=== PATIENT | male | born 1985 | race Two or more races ===

== ENCOUNTER → 2018-05-29 | Outpatient (CLI) | payer BC ==
[2018-05-29 09:40] LABS: Basophils # (auto) 0 uL; Basophils % (auto) 0.4 % (0.0-2.0); Eosinophils # (auto) 0.1 uL; Eosinophils % (auto) 1.8 % (0.0-7.0); Hematocrit 46.4 % (41.0-53.0); Hemoglobin 15.7 g/dL (13.5-17.5); Lymphocytes # (auto) 1.3 uL; Lymphocytes % (auto) 23.3 % (10.0-50.0); Mean Corpuscular Hemoglobin 30.6 pg (28.0-32.0); Mean Corpuscular Hgb Conc. 33.8 g/dL (32.0-36.0); Mean Corpuscular Volume 90.8 fL (80.0-100.0); Monocytes # (auto) 0.5 uL; Monocytes % (auto) 8.8 % (0.0-12.0); Neutrophils # (auto) 3.8 uL; Neutrophils % (auto) 65.7 % (37.0-80.0); Platelet Count (auto) 220 10^3/uL (140-450); Red Blood Cells 5.11 10^6/uL (4.5-5.90); Red Cell Distribution Width 13.1 % (11.8-14.3); White Blood Cell 5.7 10^3/uL (4.4-10.8)
[2018-05-29 10:06] LABS: Albumin 4.4 g/dL (3.4-5.0); Calcium 9.1 mg/dL (8.5-10.1)
[2018-05-29 10:11] LABS: BUN/Creatinine Ratio 22.9; Bilirubin, Total 0.8 mg/dL (0.2-1.0); Total Protein 8.4 g/dL (6.4-8.2)
== END | disposition home or self-care (01) ==
LOC: LAB 09:16
PROVIDERS: ATTEND Internal Medicine
DX: E78.5 Hyperlipidemia, unspecified (principal)
CPT/HCPCS: 36415; 80053; 80061; 83036; 84443; 85025

== ENCOUNTER → 2018-11-18 | Outpatient (CLI) | payer BC ==
[2018-11-18 11:28] LABS: Urine Bacteria FEW /hpf (None Seen); Urine Blood Negative /uL (Negative); Urine Specific Gravity 1.025 (1.001-1.035); Urine WBC <1 /hpf (0 - 3)
[2018-11-18 11:31] LABS: Albumin 4.1 g/dL (3.4-5.0); Potassium 3.9 mmol/L (3.5-5.1)
[2018-11-18 11:41] LABS: Bilirubin, Total 0.7 mg/dL (0.2-1.0); Total Protein 7.8 g/dL (6.4-8.2)
== END | disposition home or self-care (01) ==
LOC: LAB 11:04
PROVIDERS: ATTEND Internal Medicine
DX: Z00.00 Encounter for general adult medical examination without abnormal findings (principal)
CPT/HCPCS: 36415; 80053; 80061; 81001; 83036; 84153

== ENCOUNTER → 2019-04-16 | Outpatient (CLI) | payer BC ==
[2019-04-16 09:32] LABS: Basophils # (auto) 0 uL; Basophils % (auto) 0.4 % (0.0-2.0); Eosinophils # (auto) 0.1 uL; Eosinophils % (auto) 1.9 % (0.0-7.0); Hematocrit 46.2 % (41.0-53.0); Hemoglobin 15.1 g/dL (13.5-17.5); Lymphocytes # (auto) 1.1 uL; Lymphocytes % (auto) 21.7 % (10.0-50.0); Mean Corpuscular Hemoglobin 29.9 pg (28.0-32.0); Mean Corpuscular Hgb Conc. 32.8 g/dL (32.0-36.0); Mean Corpuscular Volume 91.2 fL (80.0-100.0); Monocytes # (auto) 0.4 uL; Monocytes % (auto) 7.2 % (0.0-12.0); Neutrophils # (auto) 3.4 uL; Neutrophils % (auto) 68.8 % (37.0-80.0); Nucleated Red Blood Cells % 0.1 %; Platelet Count (auto) 234 10^3/uL (140-450); Red Blood Cells 5.06 10^6/uL (4.5-5.90); Red Cell Distribution Width 13.2 % (11.8-14.3)
[2019-04-16 09:52] LABS: Potassium 4.3 mmol/L (3.5-5.1)
[2019-04-16 10:07] LABS: Albumin 4.1 g/dL (3.4-5.0); BUN/Creatinine Ratio 19.3; Bilirubin, Total 0.7 mg/dL (0.2-1.0); Calcium 9.3 mg/dL (8.5-10.1); Total Protein 8.4 g/dL (6.4-8.2)
== END | disposition home or self-care (01) ==
LOC: LAB 09:08
PROVIDERS: ATTEND Internal Medicine
DX: Z03.89 Encounter for observation for other suspected diseases and conditions ruled out (principal); Z83.438 Family history of other disorder of lipoprotein metabolism and other lipidemia; E78.5 Hyperlipidemia, unspecified
CPT/HCPCS: 36415; 80053; 80061; 82306; 83036; 84403; 84439; 84443; 85025

== ENCOUNTER → 2019-09-01 | Outpatient (CLI) | payer BC ==
[2019-09-01 10:59] LABS: Basophils # (auto) 0 10 ^3/uL (0-0.2); Basophils % (auto) 0.3 % (0.0-2.0); Eosinophils # (auto) 0.1 10 ^3/uL (0-0.8); Eosinophils % (auto) 1.4 % (0.0-7.0); Hematocrit 43.9 % (41.0-53.0); Hemoglobin 14.8 g/dL (13.5-17.5); Lymphocytes # (auto) 1.3 10 ^3/uL (0.4-5.4); Lymphocytes % (auto) 27.7 % (10.0-50.0); Mean Corpuscular Hemoglobin 30.5 pg (28.0-32.0); Mean Corpuscular Hgb Conc. 33.6 g/dL (32.0-36.0); Mean Corpuscular Volume 90.6 fL (80.0-100.0); Monocytes # (auto) 0.4 10 ^3/uL (0-1.3); Monocytes % (auto) 8.8 % (0.0-12.0); Neutrophils # (auto) 2.9 10 ^3/uL (1.6-8.6); Neutrophils % (auto) 61.8 % (37.0-80.0); Nucleated Red Blood Cells % 0.1 %; Platelet Count (auto) 227 10^3/uL (140-450); Red Blood Cells 4.84 10^6/uL (4.5-5.90); Red Cell Distribution Width 12.5 % (11.8-14.3); White Blood Cell 4.7 10^3/uL (4.4-10.8)
[2019-09-01 11:18] LABS: Albumin 4.1 g/dL (3.4-5.0); Calcium 9.1 mg/dL (8.5-10.1); Potassium 4.2 mmol/L (3.5-5.1)
[2019-09-01 11:25] LABS: Total Protein 8.3 g/dL (6.4-8.2)
== END | disposition home or self-care (01) ==
LOC: LAB 10:46
PROVIDERS: ATTEND Internal Medicine
DX: E78.5 Hyperlipidemia, unspecified (principal)
CPT/HCPCS: 36415; 80053; 80061; 82306; 83036; 84403; 85025; 86677

== ENCOUNTER → 2019-12-30 | Outpatient (CLI) | payer BC | END | disposition home or self-care (01) | LOC: LAB 08:19 | PROVIDERS: ATTEND Internal Medicine | DX: Z20.828 Contact with and (suspected) exposure to other viral communicable diseases (principal) | CPT/HCPCS: 36415; 87426; C9803; U0003 ==

== ENCOUNTER → 2020-01-25 | Outpatient (CLI) | payer BC ==
[2020-01-25 08:55] LABS: Basophils # (auto) 0 10 ^3/uL (0-0.2); Basophils % (auto) 0.5 % (0.0-2.0); Eosinophils # (auto) 0.1 10 ^3/uL (0-0.8); Eosinophils % (auto) 1.8 % (0.0-7.0); Hematocrit 45.2 % (41.0-53.0); Hemoglobin 15.1 g/dL (13.5-17.5); Lymphocytes # (auto) 1.4 10 ^3/uL (0.4-5.4); Mean Corpuscular Hemoglobin 30.2 pg (28.0-32.0); Mean Corpuscular Hgb Conc. 33.4 g/dL (32.0-36.0); Mean Corpuscular Volume 90.4 fL (80.0-100.0); Monocytes # (auto) 0.5 10 ^3/uL (0-1.3); Monocytes % (auto) 10.2 % (0.0-12.0); Neutrophils % (auto) 59.5 % (37.0-80.0); Platelet Count (auto) 242 10^3/uL (140-450); Red Cell Distribution Width 12.8 % (11.8-14.3); White Blood Cell 5.1 10^3/uL (4.4-10.8)
[2020-01-25 09:53] LABS: Albumin 4.2 g/dL (3.4-5.0); Potassium 4.1 mmol/L (3.5-5.1)
[2020-01-25 09:57] LABS: BUN/Creatinine Ratio 21.7; Bilirubin, Total 0.9 mg/dL (0.2-1.0); Total Protein 7.9 g/dL (6.4-8.2)
== END | disposition home or self-care (01) ==
LOC: LAB 08:36
PROVIDERS: ATTEND Internal Medicine
DX: E55.9 Vitamin D deficiency, unspecified (principal)
CPT/HCPCS: 36415; 80053; 82306; 83036; 84443; 85025

== ENCOUNTER → 2020-04-10 | Outpatient (CLI) | payer BC ==
[2020-04-10 07:25] LABS: Anion Gap 4 (5-15); Carbon Dioxide 30 mmol/L (21-32); Chloride 106 mmol/L (98-107); Potassium 4.4 mmol/L (3.5-5.1); Sodium 140 mmol/L (136-145)
[2020-04-10 07:26] LABS: Alanine Aminotransferase 61 U/L (16-61); Albumin 4.3 g/dL (3.4-5.0); Alkaline Phosphatase 84 U/L (45-117); Aspartate Aminotransferase 29 U/L (15-37); BUN/Creatinine Ratio 20.7; Bilirubin, Total 0.4 mg/dL (0.2-1.0); Blood Urea Nitrogen 23 mg/dL (7-18); Calcium 9.2 mg/dL (8.5-10.1); Cholesterol 225 mg/dL (< 200); GFR African American 99 mL/min; GFR Non-African American 82 mL/min; Glucose 92 mg/dL (74-106); Total Protein 8.5 g/dL (6.4-8.2); Triglycerides 92 mg/dL (< 150)
[2020-04-10 07:27] LABS: HDL Cholesterol 67 mg/dL (40-59); LDL Cholesterol 139 mg/dL (< 100)
[2020-04-10 07:28] LABS: Urine Blood Negative /uL (Negative); Urine Specific Gravity 1.027 (1.001-1.035)
[2020-04-10 07:29] LABS: Urine Bacteria FEW /hpf (None Seen)
[2020-04-10 07:44] LABS: Lymphocytes % (auto) 28.7 % (10.0-50.0); Neutrophils % (auto) 58.2 % (37.0-80.0); White Blood Cell 5.6 10^3/uL (4.4-10.8)
[2020-04-10 07:45] LABS: Basophils # (auto) 0 10 ^3/uL (0-0.2); Basophils % (auto) 0.6 % (0.0-2.0); Eosinophils # (auto) 0.1 10 ^3/uL (0-0.8); Eosinophils % (auto) 2.1 % (0.0-7.0); Hematocrit 44.1 % (41.0-53.0); Hemoglobin 14.9 g/dL (13.5-17.5); Lymphocytes # (auto) 1.6 10 ^3/uL (0.4-5.4); Mean Corpuscular Hemoglobin 30.7 pg (28.0-32.0); Monocytes # (auto) 0.6 10 ^3/uL (0-1.3); Monocytes % (auto) 10.4 % (0.0-12.0); Neutrophils # (auto) 3.3 10 ^3/uL (1.6-8.6); Nucleated Red Blood Cells % 0.2 %; Red Blood Cells 4.85 10^6/uL (4.5-5.90)
[2020-04-10 07:46] LABS: Mean Corpuscular Hgb Conc. 33.7 g/dL (32.0-36.0); Platelet Count (auto) 239 10^3/uL (140-450); Red Cell Distribution Width 12.7 % (11.8-14.3)
== END | disposition home or self-care (01) ==
LOC: LAB 07:01
PROVIDERS: ATTEND Internal Medicine
DX: E78.5 Hyperlipidemia, unspecified (principal); E55.9 Vitamin D deficiency, unspecified
CPT/HCPCS: 36415; 80053; 80061; 81001; 82306; 83036; 83540; 83550; 84439; 84443; 85025

== ENCOUNTER → 2020-09-01 | Outpatient (CLI) | payer BC ==
[2020-09-01 08:47] LABS: Basophils # (auto) 0 10 ^3/uL (0-0.2); Eosinophils # (auto) 0.1 10 ^3/uL (0-0.8); Eosinophils % (auto) 2.1 % (0.0-7.0); Hematocrit 40.3 % (41.0-53.0); Hemoglobin 14.1 g/dL (13.5-17.5); Lymphocytes # (auto) 1.1 10 ^3/uL (0.4-5.4); Lymphocytes % (auto) 22.9 % (10.0-50.0); Mean Corpuscular Hemoglobin 31.2 pg (28.0-32.0); Mean Corpuscular Hgb Conc. 34.9 g/dL (32.0-36.0); Mean Corpuscular Volume 89.4 fL (80.0-100.0); Monocytes # (auto) 0.5 10 ^3/uL (0-1.3); Monocytes % (auto) 10.7 % (0.0-12.0); Neutrophils % (auto) 63.3 % (37.0-80.0); Platelet Count (auto) 234 10^3/uL (140-450); Red Blood Cells 4.51 10^6/uL (4.5-5.90); Red Cell Distribution Width 12.6 % (11.8-14.3); White Blood Cell 4.8 10^3/uL (4.4-10.8)
[2020-09-01 09:18] LABS: Albumin 4.1 g/dL (3.4-5.0); Calcium 8.7 mg/dL (8.5-10.1)
[2020-09-01 09:24] LABS: BUN/Creatinine Ratio 18.4; Bilirubin, Total 0.8 mg/dL (0.2-1.0); Total Protein 7.9 g/dL (6.4-8.2)
== END | disposition home or self-care (01) ==
LOC: LAB 08:37
PROVIDERS: ATTEND Internal Medicine
DX: E78.5 Hyperlipidemia, unspecified (principal)
CPT/HCPCS: 36415; 80053; 80061; 82306; 83036; 84403; 85025; 85049

== ENCOUNTER → 2021-01-25 | Outpatient (CLI) | payer BC ==
[2021-01-25 13:18] LABS: Basophils # (auto) 0 10 ^3/uL (0-0.2); Basophils % (auto) 0.5 % (0.0-2.0); Eosinophils # (auto) 0.1 10 ^3/uL (0-0.8); Eosinophils % (auto) 1.8 % (0.0-7.0); Hematocrit 44.7 % (41.0-53.0); Hemoglobin 15.2 g/dL (13.5-17.5); Lymphocytes # (auto) 1.8 10 ^3/uL (0.4-5.4); Lymphocytes % (auto) 30.9 % (10.0-50.0); Mean Corpuscular Hemoglobin 30.7 pg (28.0-32.0); Mean Corpuscular Hgb Conc. 33.9 g/dL (32.0-36.0); Mean Corpuscular Volume 90.4 fL (80.0-100.0); Monocytes # (auto) 0.5 10 ^3/uL (0-1.3); Monocytes % (auto) 8.6 % (0.0-12.0); Neutrophils # (auto) 3.5 10 ^3/uL (1.6-8.6); Neutrophils % (auto) 58.2 % (37.0-80.0); Nucleated Red Blood Cells % 0.1 %; Red Blood Cells 4.94 10^6/uL (4.5-5.90)
[2021-01-25 15:42] LABS: Albumin 4.3 g/dL (3.4-5.0); BUN/Creatinine Ratio 16.3
[2021-01-25 15:45] LABS: Bilirubin, Total 0.8 mg/dL (0.2-1.0); Total Protein 8.2 g/dL (6.4-8.2)
== END | disposition home or self-care (01) ==
LOC: LAB 12:11
PROVIDERS: ATTEND Internal Medicine
DX: Z00.00 Encounter for general adult medical examination without abnormal findings (principal)
CPT/HCPCS: 36415; 80053; 82306; 83036; 85025; 86677; 86706; 86735; 86762; 86765; 86787

== ENCOUNTER → 2021-03-07 | Outpatient (CLI) | payer BC ==
[2021-03-07 08:16] LABS: Basophils # (auto) 0 10 ^3/uL (0-0.2); Basophils % (auto) 0.5 % (0.0-2.0); Eosinophils # (auto) 0.1 10 ^3/uL (0-0.8); Eosinophils % (auto) 2.5 % (0.0-7.0); Hematocrit 43.4 % (41.0-53.0); Hemoglobin 14.6 g/dL (13.5-17.5); Lymphocytes # (auto) 1.4 10 ^3/uL (0.4-5.4); Lymphocytes % (auto) 29.9 % (10.0-50.0); Mean Corpuscular Hemoglobin 30.3 pg (28.0-32.0); Mean Corpuscular Hgb Conc. 33.7 g/dL (32.0-36.0); Monocytes # (auto) 0.5 10 ^3/uL (0-1.3); Monocytes % (auto) 9.8 % (0.0-12.0); Neutrophils # (auto) 2.7 10 ^3/uL (1.6-8.6); Neutrophils % (auto) 57.3 % (37.0-80.0); Nucleated Red Blood Cells % 0.1 %; Red Blood Cells 4.82 10^6/uL (4.5-5.90); Red Cell Distribution Width 12.7 % (11.8-14.3); White Blood Cell 4.7 10^3/uL (4.4-10.8)
[2021-03-07 09:44] LABS: Potassium 4.4 mmol/L (3.5-5.1)
[2021-03-07 09:53] LABS: BUN/Creatinine Ratio 21.1
[2021-03-07 09:55] LABS: Bilirubin, Total 0.5 mg/dL (0.2-1.0); Total Protein 7.6 g/dL (6.4-8.2)
== END | disposition home or self-care (01) ==
LOC: LAB 08:01
PROVIDERS: ATTEND Internal Medicine
DX: Z00.01 Encounter for general adult medical examination with abnormal findings (principal)
CPT/HCPCS: 36415; 80053; 80061; 85025

== ENCOUNTER → 2021-04-25 | Outpatient (CLI) | payer BC | END | disposition home or self-care (01) | LOC: LAB 08:59 | PROVIDERS: ATTEND Internal Medicine | DX: Z20.822 Contact with and (suspected) exposure to COVID-19 (principal) | CPT/HCPCS: C9803; U0003 ==

== ENCOUNTER → 2021-07-18 | Outpatient (CLI) | payer BC ==
[2021-07-18 10:53] LABS: Basophils # (auto) 0 10 ^3/uL (0-0.2); Basophils % (auto) 0.6 % (0.0-2.0); Eosinophils # (auto) 0.1 10 ^3/uL (0-0.8); Eosinophils % (auto) 2.2 % (0.0-7.0); Hematocrit 43.1 % (41.0-53.0); Hemoglobin 14.6 g/dL (13.5-17.5); Lymphocytes # (auto) 1.3 10 ^3/uL (0.4-5.4); Lymphocytes % (auto) 30.5 % (10.0-50.0); Mean Corpuscular Hemoglobin 30.4 pg (28.0-32.0); Mean Corpuscular Hgb Conc. 33.9 g/dL (32.0-36.0); Mean Corpuscular Volume 89.6 fL (80.0-100.0); Monocytes # (auto) 0.4 10 ^3/uL (0-1.3); Monocytes % (auto) 8.4 % (0.0-12.0); Neutrophils # (auto) 2.5 10 ^3/uL (1.6-8.6); Neutrophils % (auto) 58.3 % (37.0-80.0); Nucleated Red Blood Cells % 0.2 %; Red Blood Cells 4.81 10^6/uL (4.5-5.90); Red Cell Distribution Width 12.6 % (11.8-14.3); White Blood Cell 4.2 10^3/uL (4.4-10.8)
[2021-07-18 11:32] LABS: Albumin 3.9 g/dL (3.4-5.0); Potassium 4.2 mmol/L (3.5-5.1)
[2021-07-18 11:39] LABS: BUN/Creatinine Ratio 18.1; Calcium 9.2 mg/dL (8.5-10.1); Total Protein 8.2 g/dL (6.4-8.2)
== END | disposition home or self-care (01) ==
LOC: LAB 10:08
PROVIDERS: ATTEND Internal Medicine
DX: Z00.00 Encounter for general adult medical examination without abnormal findings (principal)
CPT/HCPCS: 80053; 80061; 82306; 83036; 84153

== ENCOUNTER → 2021-08-28 | Outpatient (CLI) | payer BC | END | disposition home or self-care (01) | LOC: XYW 15:28 | PROVIDERS: ATTEND Internal Medicine | DX: M47.812 Spondylosis without myelopathy or radiculopathy, cervical region (principal); M51.37 Other intervertebral disc degeneration, lumbosacral region | CPT/HCPCS: 72052; 72100 ==

== ENCOUNTER → 2021-11-12 | Outpatient (CLI) | payer BC ==
[2021-11-12 13:34] LABS: Band Neutrophils % (manual) 0; Basophils % (manual) 0 (0.0-2.0); Blast Cells 0; Eosinophils % (manual) 0 (0-7); Hematocrit 42.2 % (41.0-53.0); Hemoglobin 13.9 g/dL (13.5-17.5); Mean Corpuscular Hemoglobin 29.6 pg (28.0-32.0); Mean Corpuscular Hgb Conc. 32.9 g/dL (32.0-36.0); Mean Corpuscular Volume 89.8 fL (80.0-100.0); Metamyelocytes % 0; Myelocytes % 0; Promyelocytes % 0; Reactive Lymphocytes 0; Red Cell Distribution Width 12.4 % (11.8-14.3); White Blood Cell 4.9 10^3/uL (4.4-10.8)
[2021-11-12 14:06] LABS: Calcium 8.9 mg/dL (8.5-10.1); Potassium 4.3 mmol/L (3.5-5.1)
[2021-11-12 14:12] LABS: BUN/Creatinine Ratio 29.6; Bilirubin, Total 0.5 mg/dL (0.2-1.0); Total Protein 7.7 g/dL (6.4-8.2)
[2021-11-12 14:47] LABS: Lymphocytes % (manual) 32 (10.0-50.0); Monocytes % (manual) 9 (0-12)
[2021-11-12 15:29] LABS: Urine Bacteria NONE SEEN /hpf (None Seen); Urine Blood Negative /uL (Negative); Urine Specific Gravity 1.025 (1.001-1.035); Urine WBC 1 /hpf (0 - 3)
== END | disposition home or self-care (01) ==
LOC: LAB 13:19
PROVIDERS: ATTEND Internal Medicine
DX: E78.00 Pure hypercholesterolemia, unspecified (principal)
CPT/HCPCS: 36415; 80053; 80061; 81001; 82306; 83036; 84153; 84403; 85007; 85027; 87086; 87088

== ENCOUNTER → 2021-12-06 | Outpatient (CLI) | payer BC ==
[2021-12-06 10:20] LABS: Urine Bacteria NONE SEEN /hpf (None Seen); Urine Blood Negative /uL (Negative); Urine Specific Gravity 1.012 (1.001-1.035); Urine WBC <1 /hpf (0 - 3)
== END | disposition home or self-care (01) ==
LOC: LAB 10:02
PROVIDERS: ATTEND Internal Medicine
DX: Z00.00 Encounter for general adult medical examination without abnormal findings (principal)
CPT/HCPCS: 81001; 87086

== ENCOUNTER → 2022-01-21 | Outpatient (CLI) | payer BC | END | disposition home or self-care (01) | LOC: EEVIPCON → XYW 15:48 | PROVIDERS: ATTEND Internal Medicine | DX: R07.9 Chest pain, unspecified (principal) | CPT/HCPCS: 93306 ==

== ENCOUNTER → 2022-07-18 | Outpatient (CLI) | payer BC ==
[2022-07-18 10:01] LABS: Band Neutrophils % (manual) 0; Basophils % (manual) 0 (0.0-2.0); Blast Cells 0; Metamyelocytes % 0; Myelocytes % 0; Promyelocytes % 0; Reactive Lymphocytes 0
[2022-07-18 10:06] LABS: Hematocrit 43.4 % (41.0-53.0); Hemoglobin 14.7 g/dL (13.5-17.5); Mean Corpuscular Hemoglobin 30.6 pg (28.0-32.0); Red Blood Cells 4.82 10^6/uL (4.5-5.90); Red Cell Distribution Width 12.6 % (11.8-14.3); White Blood Cell 4.5 10^3/uL (4.4-10.8)
[2022-07-18 10:33] LABS: Eosinophils % (manual) 1 (0-7); Lymphocytes % (manual) 22 (10.0-50.0); Monocytes % (manual) 6 (0-12)
[2022-07-18 10:38] LABS: Carcinoembryonic Antigen 1.56 ng/mL (<5.0 OR =); Free T4 (Free Thyroxine) 1.09 ng/dL (0.89-1.76); Prostate Specific Antigen 0.82 ng/mL (0.0-4.0)
[2022-07-18 10:41] LABS: Albumin 4.2 g/dL (3.4-5.0); BUN/Creatinine Ratio 23.2 (10.0-20.0); Bilirubin, Total 0.4 mg/dL (0.2-1.0); CRP High Sensitivity 0.23 mg/dL (< 0.3); Calcium 8.8 mg/dL (8.5-10.1)
[2022-07-18 11:04] LABS: Thyroid Stimulating Hormone 0.93 uIU/mL (0.358-3.74)
[2022-07-18 12:29] LABS: INR 0.92 (0.9-1.15); Partial Thromboplastin Time 31.2 sec (24.6-33.4)
[2022-07-18 14:09] LABS: Creatinine, Urine 28 mg/dL (30.0-125.0); Protein, Urine < 5 mg/dL (0.0-11.9)
[2022-07-18 14:14] LABS: Urine Bacteria NONE SEEN /hpf (None Seen); Urine Blood Negative /uL (Negative); Urine Specific Gravity 1.029 (1.001-1.035)
[2022-07-18 14:19] LABS: Micro Albumin < 5.00 mg/L (0-30.0)
== END | disposition home or self-care (01) ==
LOC: LAB 09:42
PROVIDERS: ATTEND Internal Medicine
DX: Z00.00 Encounter for general adult medical examination without abnormal findings (principal)
CPT/HCPCS: 36415; 80053; 80061; 81001; 82043; 82306; 82378; 82570; 82607; 83036; 83520; 83615; 84153; 84156; 84403; 84439; 84443; 85007; 85027; 85610; 85730; 86141; 86256; 86301; 86677; 87086

== ENCOUNTER → 2022-07-19 | Outpatient (CLI) | payer BC | END | disposition home or self-care (01) | LOC: LAB 08:31 | PROVIDERS: ATTEND Internal Medicine | DX: Z00.00 Encounter for general adult medical examination without abnormal findings (principal) | CPT/HCPCS: 82274; 85048; 87045; 87177; 87427; 87493 ==

== ENCOUNTER 2022-10-30 08:27 | Day surgery (SDC) | payer BC ==
[~2022-10-30] VITALS: Ht 182.9 cm; Wt 81.2 kg
[2022-10-30 08:31] VITALS: TEMP 97.2
[2022-10-30] MEDS ORDERED: LIDOCAINE VISCOUS 2% 15ML UD ONE (08:35)
[2022-10-30 09:07] LABS: Basophils # (auto) 0 10 ^3/uL (0-0.2); Basophils % (auto) 0.6 % (0.0-2.0); Eosinophils # (auto) 0.1 10 ^3/uL (0-0.8); Eosinophils % (auto) 1.3 % (0.0-7.0); Hematocrit 44.7 % (41.0-53.0); Hemoglobin 15.1 g/dL (13.5-17.5); Lymphocytes # (auto) 1.3 10 ^3/uL (0.4-5.4); Lymphocytes % (auto) 26.3 % (10.0-50.0); Mean Corpuscular Hemoglobin 30.4 pg (28.0-32.0); Mean Corpuscular Hgb Conc. 33.8 g/dL (32.0-36.0); Mean Corpuscular Volume 89.8 fL (80.0-100.0); Monocytes # (auto) 0.5 10 ^3/uL (0-1.3); Neutrophils # (auto) 3.1 10 ^3/uL (1.6-8.6); Neutrophils % (auto) 61.8 % (37.0-80.0); Nucleated Red Blood Cells % 0.1 %; Red Blood Cells 4.98 10^6/uL (4.5-5.90); Red Cell Distribution Width 12.8 % (11.8-14.3); White Blood Cell 4.9 10^3/uL (4.4-10.8)
[2022-10-30 09:19] LABS: INR 1.02 (0.9-1.15); Partial Thromboplastin Time 31.6 SEC (24.5-34.5); Prothrombin Time 10.7 sec (9.3-11.8)
[2022-10-30 09:30] LABS: Alanine Aminotransferase 35 U/L (7-40); Albumin 4.8 g/dL (3.2-4.8); Alkaline Phosphatase 63 U/L (46-116); Anion Gap 7.9 (5-15); Aspartate Aminotransferase 25 U/L (13-40); Bilirubin, Total 1.2 mg/dL (0.2-1.0); Blood Urea Nitrogen 12 mg/dL (9-23); Carbon Dioxide 26.1 mmol/L (20-30); Chloride 104 mmol/L (98-107); Cholesterol 229 mg/dL (< 200); Glucose 96 mg/dL (74-106); HDL Cholesterol 58 mg/dL (40-59); LDL Cholesterol 148 mg/dL (< 100); Potassium 4.1 mmol/L (3.5-5.1); Sodium 138 mmol/L (136-145); Triglycerides 115 mg/dL (< 150)
[2022-10-30 09:34] LABS: Calcium 9.4 mg/dL (8.5-10.1)
[2022-10-30 09:51] VITALS: PULSE 95; RESP 18; O2SAT 100
[2022-10-30 11:06] VITALS: BP 104/70; PULSE 80; RESP 16; O2SAT 98
[2022-11-06 12:07] LABS: Free Testosterone(Direct) 5.8 pg/mL (8.7-25.1)
== END 2022-10-30 11:18 | disposition home or self-care (01) ==
LOC: GI 08:27
PROVIDERS: ATTEND Internal Medicine Gastroenterology
DX: K62.5 Hemorrhage of anus and rectum (principal); K64.1 Second degree hemorrhoids; K64.4 Residual hemorrhoidal skin tags; K62.1 Rectal polyp; K63.5 Polyp of colon; K25.9 Gastric ulcer, unspecified as acute or chronic, without hemorrhage or perforation; K29.50 Unspecified chronic gastritis without bleeding; K31.7 Polyp of stomach and duodenum
CPT/HCPCS: 36415; 43239; 45380; 45385; 80053; 80061; 82306; 83036; 84402; 84403; 85025; 85610; 85730; 88305; 88342; J7030

== ENCOUNTER → 2022-12-26 | Outpatient (CLI) | payer BC ==
[2022-12-26 08:44] LABS: Basophils # (auto) 0 10 ^3/uL (0-0.2); Basophils % (auto) 0.5 % (0.0-2.0); Eosinophils # (auto) 0.1 10 ^3/uL (0-0.8); Eosinophils % (auto) 1.5 % (0.0-7.0); Hematocrit 44.2 % (41.0-53.0); Hemoglobin 14.5 g/dL (13.5-17.5); Lymphocytes # (auto) 1.3 10 ^3/uL (0.4-5.4); Lymphocytes % (auto) 27.4 % (10.0-50.0); Mean Corpuscular Hemoglobin 29.7 pg (28.0-32.0); Mean Corpuscular Hgb Conc. 32.9 g/dL (32.0-36.0); Mean Corpuscular Volume 90.4 fL (80.0-100.0); Monocytes # (auto) 0.4 10 ^3/uL (0-1.3); Monocytes % (auto) 8.9 % (0.0-12.0); Neutrophils # (auto) 2.9 10 ^3/uL (1.6-8.6); Neutrophils % (auto) 61.7 % (37.0-80.0); Red Blood Cells 4.89 10^6/uL (4.5-5.90); Red Cell Distribution Width 13.1 % (11.8-14.3); White Blood Cell 4.7 10^3/uL (4.4-10.8)
[2022-12-26 09:29] LABS: Alanine Aminotransferase 26 U/L (7-40); Alkaline Phosphatase 72 U/L (46-116); Anion Gap 8 (5-15); BUN/Creatinine Ratio 13.8 (10.0-20.0); Blood Urea Nitrogen 13 mg/dL (9-23); Calcium 9.8 mg/dL (8.5-10.1); Carbon Dioxide 29 mmol/L (20-30); Chloride 103 mmol/L (98-107); Glucose 93 mg/dL (74-106); LDL Cholesterol 124 mg/dL (< 100); Potassium 4.2 mmol/L (3.5-5.1); Sodium 140 mmol/L (136-145); Thyroid Stimulating Hormone 1.25 uIU/mL (0.358-3.74); Triglycerides 72 mg/dL (< 150)
[2022-12-26 09:30] LABS: Aspartate Aminotransferase 18 U/L (13-40); Bilirubin, Total 0.9 mg/dL (0.2-1.0); Cholesterol 214 mg/dL (< 200); HDL Cholesterol 64 mg/dL (40-59)
== END | disposition home or self-care (01) ==
LOC: LAB 08:37
PROVIDERS: ATTEND Internal Medicine
DX: E55.9 Vitamin D deficiency, unspecified (principal)
CPT/HCPCS: 36415; 80053; 80061; 82306; 83036; 83615; 84403; 84443; 85025

== ENCOUNTER → 2023-04-14 | Outpatient (CLI) | payer BC ==
[2023-04-14 15:56] LABS: Basophils # (auto) 0 10 ^3/uL (0-0.2); Basophils % (auto) 0.4 % (0.0-2.0); Eosinophils # (auto) 0.1 10 ^3/uL (0-0.8); Eosinophils % (auto) 0.9 % (0.0-7.0); Hemoglobin 14.9 g/dL (13.5-17.5); Lymphocytes # (auto) 1.5 10 ^3/uL (0.4-5.4); Lymphocytes % (auto) 21.2 % (10.0-50.0); Mean Corpuscular Hemoglobin 29.8 pg (28.0-32.0); Mean Corpuscular Volume 90.2 fL (80.0-100.0); Monocytes # (auto) 0.5 10 ^3/uL (0-1.3); Monocytes % (auto) 6.6 % (0.0-12.0); Neutrophils % (auto) 70.9 % (37.0-80.0); Nucleated Red Blood Cells % 0.2 %; Red Blood Cells 4.99 10^6/uL (4.5-5.90); Red Cell Distribution Width 12.8 % (11.8-14.3); White Blood Cell 7.1 10^3/uL (4.4-10.8)
[2023-04-14 16:27] LABS: Erythrocyte Sedimentation Rate 12 mm/hr (0-20)
[2023-04-14 16:34] LABS: Alanine Aminotransferase 33 U/L (7-40); Albumin 4.9 g/dL (3.2-4.8); Alkaline Phosphatase 74 U/L (46-116); Anion Gap 6 (5-15); Aspartate Aminotransferase 17 U/L (13-40); BUN/Creatinine Ratio 12.1 (10.0-20.0); Blood Urea Nitrogen 12 mg/dL (9-23); CRP High Sensitivity 0.14 mg/dL (<1.0); Calcium 9.8 mg/dL (8.5-10.1); Carbon Dioxide 31 mmol/L (20-30); Chloride 103 mmol/L (98-107); Glucose 89 mg/dL (74-106); Potassium 3.5 mmol/L (3.5-5.1); Sodium 140 mmol/L (136-145)
[2023-04-14 16:35] LABS: Bilirubin, Total 0.7 mg/dL (0.2-1.0); Total Protein 7.8 g/dL (5.7-8.2)
[2023-04-14 16:44] LABS: Thyroid Stimulating Hormone 0.8 uIU/mL (0.358-3.74)
[2023-04-15 08:06] LABS: AFP Serum Tumor Marker <1.8 ng/mL (0.0-6.9); Carbohydrate Antigen 19-9 23 U/mL (0-35)
== END | disposition home or self-care (01) ==
LOC: LAB 15:44
PROVIDERS: ATTEND Internal Medicine
DX: E55.9 Vitamin D deficiency, unspecified (principal)
CPT/HCPCS: 36415; 80053; 82105; 82306; 83036; 83615; 84153; 84443; 85025; 85652; 86141; 86301

== ENCOUNTER 2023-05-26 09:26 | Emergency (ER) | payer BC ==
[~2023-05-26] VITALS: Ht 188 cm; Wt 81.6 kg
[2023-05-26] MEDS ORDERED: cefTRIAXone 2GM/50ML D5W 50 ML IV ONE (14:45)
[2023-05-26] MEDS ORDERED: FOLIC ACID 1 MG, MAGNESIUM SULF SDV 50% 8 MEQ, MULTIPLE VITAMIN 10 ML, THIAMINE INJ 100... INJ ONE (15:00)
[2023-05-27] MEDS ORDERED: cefTRIAXone 2GM/50ML D5W 50 ML IV SCH (11:00)
[2023-05-27] MEDS ORDERED: FOLIC ACID 1 MG, MAGNESIUM SULF SDV 50% 8 MEQ, MULTIPLE VITAMIN 10 ML, THIAMINE INJ 100... INJ SCH (17:00)
== END 2023-05-27 00:30 | disposition home or self-care (01) ==
LOC: EEVIPCON 09:26 → ER 09:26
DX: E86.0 Dehydration (principal)
CPT/HCPCS: J0696; J3411; J3475; J7030

== ENCOUNTER → 2023-07-29 | Outpatient (CLI) | payer BC ==
[2023-07-29 10:41] LABS: Basophils # (auto) 0 10 ^3/uL (0-0.2); Basophils % (auto) 0.6 % (0.0-2.0); Eosinophils # (auto) 0.1 10 ^3/uL (0-0.8); Eosinophils % (auto) 1.2 % (0.0-7.0); Hematocrit 45.8 % (41.0-53.0); Hemoglobin 15.1 g/dL (13.5-17.5); Lymphocytes # (auto) 1.1 10 ^3/uL (0.4-5.4); Lymphocytes % (auto) 23.2 % (10.0-50.0); Mean Corpuscular Hemoglobin 29.8 pg (28.0-32.0); Mean Corpuscular Volume 90.5 fL (80.0-100.0); Monocytes # (auto) 0.4 10 ^3/uL (0-1.3); Monocytes % (auto) 8.7 % (0.0-12.0); Neutrophils # (auto) 3.2 10 ^3/uL (1.6-8.6); Neutrophils % (auto) 66.3 % (37.0-80.0); Nucleated Red Blood Cells % 0.1 %; Red Blood Cells 5.06 10^6/uL (4.5-5.90); Red Cell Distribution Width 13.2 % (11.8-14.3); White Blood Cell 4.8 10^3/uL (4.4-10.8)
[2023-07-29 10:56] LABS: Urine Bacteria None Seen /hpf (None Seen); Urine Blood Negative /uL (Negative); Urine Clarity Clear (Clear); Urine Color Light-Yellow (Yellow); Urine Protein, UAD Negative (Negative); Urine Specific Gravity 1.026 (1.001-1.035); Urine Sperm PRESENT /hpf (None Seen); Urine Urobilinogen Normal (Negative); Urine WBC <1 /hpf (0 - 3); Urine pH 7.5 (5.0-9.0)
[2023-07-29 11:18] LABS: Alanine Aminotransferase 33 U/L (7-40); Albumin 4.6 g/dL (3.2-4.8); Alkaline Phosphatase 68 U/L (46-116); Anion Gap 7 (5-15); Aspartate Aminotransferase 19 U/L (13-40); BUN/Creatinine Ratio 20.3 (10.0-20.0); Blood Urea Nitrogen 16 mg/dL (9-23); Calcium 9.6 mg/dL (8.5-10.1); Carbon Dioxide 26 mmol/L (20-30); Chloride 104 mmol/L (98-107); Cholesterol 226 mg/dL (< 200); Glucose 98 mg/dL (74-106); HDL Cholesterol 59 mg/dL (40-59); LDL Cholesterol 150 mg/dL (< 100); Potassium 4.3 mmol/L (3.5-5.1); Sodium 137 mmol/L (136-145); Triglycerides 86 mg/dL (< 150)
[2023-07-29 11:19] LABS: Bilirubin, Total 0.7 mg/dL (0.2-1.0); Total Protein 7.6 g/dL (5.7-8.2)
[2023-07-29 11:21] LABS: Thyroid Stimulating Hormone 0.78 uIU/mL (0.55-4.78)
== END | disposition home or self-care (01) ==
LOC: LAB 10:22
PROVIDERS: ATTEND Internal Medicine
DX: Z12.5 Encounter for screening for malignant neoplasm of prostate (principal); E03.9 Hypothyroidism, unspecified; E55.9 Vitamin D deficiency, unspecified
CPT/HCPCS: 36415; 80053; 80061; 81001; 82306; 83036; 83615; 84153; 84403; 84443; 85025

== ENCOUNTER → 2024-01-02 | Day surgery (SDC) | payer BC ==
[~2024-01-02] VITALS: Ht 182.9 cm; Wt 84.1 kg
[~2024-01-02] MED LIST: ANGIOMAX 250 MG VIAL IV ONE; HEPARIN SODIUM (PORCINE) 5000 UNITS/ML 1ML VIAL ONE; IODIXANOL 320MG/ML 100ML BTL IV ONE; LIDOCAINE 2%HCL (LOCAL ANESTH.) INJ 20ML MDV ONE; MIDAZOLAM HCL 2MG/2ML 2ml VIAL (1mg/ml) ONE; PROM2SYP2 PO; SODIUM CHL 0.9% 0 ML ONE; VERAPAMIL 2.5MG/ML INJ 2ML VIAL IV ONE; fentaNYL CITRATE 100 MCG/2 ML VL ONE
--- NOTE | 2024-01-03 00:02 | ED.PDOC ---
HPI Comments 38M previously healthy presents with 4+ hours of sharp left sided chest pain that radiates to his left arm that began at rest. Patient called project management instructor who took patient to [facility] and had dynamic ekg changes. Patient then was escorted here for expert cardiology consultation. Chief Complaint: Chest Pain Time Seen by MD: 00:02 Allergies: Coded Allergies: NO KNOWN ALLERGIES (Unverified , 10/30/22) Home Meds Reported Medications Promethazine W/Codeine (Promethazine/Codeine) 1 Syp Syp, 5 ML PO TID PRN for 7 Days, #240 ML 10/07/23 Promethazine W/Codeine (Promethazine/Codeine) 1 Syp Syp, 5 ML PO TID PRN for 7 Days, #240 ML 10/07/23 Information Source: Patient Mode of Arrival: Ambulatory Past Medical History PAST MEDICAL HISTORY: Denies Surgical History: Denies all surgeries Constitutional: denies: chills, diaphoresis, fatigue, fever, malaise, sweats, weakness, others EENTM: denies: blurred vision, double vision, ear bleeding, ear discharge, ear drainage, ear pain, ear ringing, eye pain, eye redness, hearing loss, mouth pain, mouth swelling, nasal discharge, nose bleeding, nose congestion, nose p ain, photophobia, tearing, throat pain, throat swelling, voice changes, others Respiratory: denies: cough, hemoptysis, orthopnea, SOB at rest, shortness of breath, SOB with excertion, stridor, wheezing, others Cardiovascular: reports: chest pain; denies: dizzy spells, diaphoresis, Dyspnea on exertion, edema, irregular heart beat, left arm pain, lightheadedness, palpitations, PND, syncope, others Gastrointestinal: denies: abdomen distended, abdominal pain, blood streaked bowels, constipated, diarrhea, dysphagia, difficulty swallowing, hematemesis, melena, nausea, poor appetite, poor fluid intake, rectal bleeding, rectal pain, vomiting, others Genitourinary: denies: burning, dysuria, flank pain, frequency, hematuria, incontinence, penile discharge, penile sore, pain, testicle pain, testicle swelling, urgency, others Neurological: denies: dizziness, fainting, headache, left sided numbness, left sided weakness, numbness, paresthesia, pre-existing deficit, right sided numbness, right sided weakness, seizure, speech problems, tingling, tremors, weakness, others Musculoskeletal: denies: back pain, gout, joint pain, joint swelling, muscle pain, muscle stiffness, neck pain, others Integumetry: denies: bruises, change in color, change in hair/nails, dryness, laceration, lesions, lumps, rash, wounds, others Allergic/Immunocompromised: denies: Difficulty Healing, Frequent Infections, Hives, Itching, others Hematologic/Lymphatic: denies: anemia, blood clots, easy bleeding, easy bruising, swollen glands, others Endocrine: denies: excessive hunger, excessive sweating, excessive thirst, excessive urination, flushing, intolerance to cold, intolerance to heat, unexplained weight gain, unexplained weight loss, others Psychiatric: denies: anxiety, bipolar disorder, depression, hopeless, panic disorder, schizophrenia, sleepless, suicidal, others Physical Exam General Appearance: No Apparent Distress, Normal HEENT: NOT DONE Neck: NOT DONE Respiratory: No Accessory Muscle Use, No Respiratory Distress Cardiovascular: No Edema, No JVD, Tachycardia Breast Exam: Deferred Gastrointestinal: NOT DONE Genitalia: Deferred Pelvic: Deferred Rectal: Deferred Extremities: No calf tenderness, Normal range of motion Musculoskeletal : Apperance: Normal Neurologic: Alert, No Motor Deficits, Normal Affect, Normal Mood, No Sensory Deficits Cerebellar Function: Normal Reflexes: NOT DONE Skin: Dry, Normal Color, Warm Lymphatic: No Adenopathy Was a procedure done? Was a procedure done?: No CP Differential Dx Differential Diagnosis: Angina, Anxiety / Panic Attack Differential Diagnosis: CHF, HTN Essential Differential Diagnosis: Angina, Chest Wall Pain, Costochondritis, Esophageal reflux/spasm, Gastritis, Myocardial Infarction, Pneumonia Time of 1ST Reevaluation: 23:58 Reevaluation 1ST: Unchanged Consultation: Cardiology Patient Education/Counseling: Diagnosis, Treatment Family Education/Counseling: No Family Present Departure 1 Departure Time of Disposition: 00:05 (Patient with 10 mg changes on EKG. Patient went emergently to the parking lot laborer.) Impression: Primary Impression: Acute chest pain Additional Impression: Acute electrocardiogram changes Disposition: ADMITTED INPATIENT Admit to: Supervisor [employer] Condition: Serious Critical Care Note Critical Care Time?: Yes (35 min-critical care time only) Stability Stability form required: No Heart Score Heart Score: Heart Score Response (Comments) Value History Moderate Suspicious 1 EKG Repolarization Disturb 1 Age <45 0 Risk Factors No known risk factors 0 Troponin N/A 0 Total 2 I personally scribed for MACY GIMENEZ MD ([email or web address]) on 01/03/24 at 00:02. Electronically submitted by Demian Malone ([email or web address]). MACY GIMENEZ MD Jan 03, 2024 00:02
--- NOTE | 2024-01-03 00:23 | DVHINCON2 ---
Date Seen: Jan 03, 2024 Referring Physician Trace Davila Reason for Consultation Acute chest Pain with dynamic EKG changes History of Present Illness This is a 38-year-old gentleman with no past medical history who presents to the hospital complaining of acute chest pain for the past 1-1/2 hour. Patient had hot shower at home after he came late from his work. That after he developed acute chest pain retrosternally felt as pressure-like sensation radiating to left arm. Associated with mild sweating. Patient admitted that he has been stressed out lately he has been dehydrated. He has no significant past history of diabetes mellitus Tapazole, or hypertension nor hyperlipidemia. However he has a grandfather follow maternal side with a history of myocardial infarction coronary artery bypass graft surgery. Patient admitted taken four tablets of baby aspirin with some relief of the pain. Patient went to [facility] emergency room for which an EKG was done this shows posterior Q-waves with ST R-wave transition suggestive of old infarction. He has a one set of troponin drawn it was negative less than four, this was at high sensitivity troponin I. His catheter was 1.1 and his blood urea nitrogen was measured at 12 mm per dL. Given history of ongoing chest pain patient decided to drive all the way up to the [facility] for further evaluation, since patient is having ongoing chest pain we have asked the patient to the general production laborer to rule out obstructive carotid disease. Past Medical History Significant only for gastroesophageal reflux disease for which he takes Protonix. Past Surgical History Unremarkable. Allergies: Coded Allergies: NO KNOWN ALLERGIES (Unverified , 10/30/22) Home Meds Reported Medications Promethazine W/Codeine (Promethazine/Codeine) 1 Syp Syp, 5 ML PO TID PRN for 7 Days, #240 ML 10/07/23 Promethazine W/Codeine (Promethazine/Codeine) 1 Syp Syp, 5 ML PO TID PRN for 7 Days, #240 ML 10/07/23 Review of Systems Twelve point review of systems were unremarkable Vital Signs Heart rate 112 beats per minute regular, normal JVP hydralazine home, normal radial femoral artery 80 radial delay, his blood pressure was 115/78, hydronephrosis 2nd set with Olya mother. He is also good calcification both in good symmetrical peripheral pulses. Neurologic examination was grossly intact. Physical Exam Normal frozen 2nd set without audible murmur. Assessment Acute chest pain with ongoing EKG changes in the form of all posterior myocardial infarction, and some lateral ST segment changes, for which patient rushed to the general production laborer to rule out obstructive coronary artery disease has a case of possible acute coronary syndrome per Plan/Recommendation Giving the patient presentations with acute chest pain that has been on and off lately with dynamic EKG changes coronary angiogram is warranted. She has occasional be done as well as basic lab work including stated troponin CMP CBC hemoglobin A1c lipid profile thyroid function test and CRP. Plan discussed with: Patient Date of Service: Jan 03, 2024 Billing Provider: JENNIFER FRANKLIN MD Cardiology Common Codes: [id number] CARE 30-74 MIN JENNIFER FRANKLIN MD Jan 03, 2024 00:23
--- NOTE | 2024-01-03 00:45 | DVHOP2 ---
Operative Report -Cardiology Report Details Date: 01/03/24 Preop Diagnosis: Acute onset chest pain with dynamic EKG changes. To rule out acute coronary syndrome cardiac catheterization was done. 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 Left ventriculography shows overall preserved left ventricular systolic function estimated fraction of 60%. Surgeon: Boston Ortiz MD Anesthesiologist: Conscious sedation was achieved using 25 mcg of fentanyl as well as a mg of IV midazolam. These medication we will give antibiotics we will bridge her with the primary automatic dry starch operator in the long term without thinning years. Patient was monitored for total 35 minutes without complication. Anesthesia: Local Consent: The patient was informed of the risks and benefits of the procedure. These include but are not limited to complications of anesthesia, postoperative infection, incomplete relief of symptoms, recurrence of symptoms, damage to blood vessels, nerves and tendons, deep venous thrombosis, pulmonary embolism and possible need for repeat surgery in the future. Complications: None were observed. Indications for Surgery: This is a 38-year-old gentleman with no past medical history who presents to the hospital complaining of acute chest pain for the past 1-1/2 hour. Patient had hot shower at home after he came late from his work. That after he developed acute chest pain retrosternally felt as pressure-like sensation radiating to left arm. Associated with mild sweating. Patient admitted that he has been stressed out lately he has been dehydrated. He has no significant past history of diabetes mellitus Tapazole, or hypertension nor hyperlipidemia. However he has a grandfather follow maternal side with a history of myocardial infarction coronary artery bypass graft surgery. Patient admitted taken four tablets of baby aspirin with some relief of the pain. Patient went to [facility] emergency room for which an EKG was done this shows posterior Q-waves with ST R-wave transition suggestive of old infarction. He has a one set of troponin drawn it was negative less than four, this was at high sensitivity troponin I. His catheter was 1.1 and his blood urea nitrogen was measured at 12 mm per dL. Given history of ongoing chest pain patient decided to drive all the way up to the [facility] for further evaluation, since patient is having ongoing chest pain we have asked the patient to the laborer operator to rule out obstructive carotid disease. Name of Procedure Performed 1. Left heart catheterization with left ventricular end-diastolic pressure m easurement 2. Left ventriculogram. 3. Selective right and left selective coronary angiograms with the Tonny graft [place] radial approach. 4. Conscious sedation using 25 mcg of fentanyl as well as a mg IV midazolam. Procedure Details Procedure Details: Procedure note and vascular access: After informed consent was obtained risks, benefits, complications, and alternatives were discussed in details with the patient who agreed to have the procedure done. At the beginning of the procedure, conscious sedation was obtained using 25 mcg of fentanyl as well as a 1 mg midazolam. The right wrist and right groin area was prepped and draped in the regular sterile fashion. A total of 2 cc of 1% xylocaine was administered to the right wrist area before a six [place] sheath was placed using modified Seldinger technique. A cocktail of 2.5 mg of verapamil as well as 100 mcg of nitroglycerin were given intra-arterially to prevent vasospasm. A 3000 IU heparin was given intravenously at the beginning of the procedure, a tiger five [place] catheter was used transferred Dilip to and bennett Smith's unassisted left ventricular end-diastolic pressure, five [place] pigtail was used for left ventriculogram cineangiogram findings were as follow: 1. Left heart catheterization with left ventricular end-diastolic pressure measurement: With the help the tiger five [place] catheter as well as a J-tip wire we were able to cross the aortic valve and measure left ventricular diastolic pressure, which was normal at 12 mm Hg. There was no gradient across the aortic valve on the pullback . 2. Left ventriculography: The tiger five [place] catheter was exchanged for a five [place] pigtail diagnostic catheter, cine left ventriculogram was done, this showed well- preserved left ventricular systolic function with estimated ejection fraction of 60% with normal Motions of all left ventricular wall segments. 3. Selective right and left coronary angiography utilizing right radial approach: 1- The right coronary artery comes off the right coronary cusp it is a medium to large caliber vessel it bifurcate distally into large posterior descending artery, and a small posterolateral right. No significant atherosclerotic plaquing was noted. 2. Left main comes off the left coronary cusp, it bifurcates into a large left anterior descending artery and a medium-sized left circumflex vessel. Left main is free of any significant disease. 3. Left anterior descending artery is a large vessel with transapical course, it has mild ectasia of the proximal segment with sluggish flow, there is mild myocardial bridging of the proximal and distal part of the LAD. No discrete stenosis was noted. 4. The left circumflex artery is medium-sized vessels that gives rise to two obtuse marginal branches, has no significant atherosclerotic plaquing or stenosis. Impression and plan: 1. No significant obstructive carotid disease was noted in the study done today. 2. There is mild sluggish flow to the left anterior descending artery with mild ectasia the proximal segment , on mild mild myocardial bridging involving the proximal and distal part, which could explain patient's symptoms and dynamic EKG changes, I would suggest starting beta blockade to control heart rate and reduce inotropic activity of the left ventricle. 3. Risk factor modifications including hyperlipidemia as screening for other risk factors like diabetes and hypertension are warranted. 4. Echocardiography has to be done to rule out RCA with a valve agent as well as regional wall motion abnormality that was not seen in Cine ventriculography. Condition Good [facility] Clinical Frailty Scale [facility] Clinical Frailty Scale: Very Fit Stress Test Stress Test Performed: No Dominance Dominance: Right Disposition BOSTON ORTIZ MD Jan 03, 2024 00:45
[2024-01-03 01:15] LABS: Basophils # (auto) 0 10 ^3/uL (0-0.2); Basophils % (auto) 0.5 % (0.0-2.0); Eosinophils # (auto) 0.1 10 ^3/uL (0-0.8); Eosinophils % (auto) 1.2 % (0.0-7.0); Hematocrit 41.8 % (41.0-53.0); Hemoglobin 14.1 g/dL (13.5-17.5); Lymphocytes # (auto) 2.5 10 ^3/uL (0.4-5.4); Lymphocytes % (auto) 31.8 % (10.0-50.0); Mean Corpuscular Hemoglobin 30.9 pg (28.0-32.0); Mean Corpuscular Hgb Conc. 33.7 g/dL (32.0-36.0); Mean Corpuscular Volume 91.7 fL (80.0-100.0); Monocytes # (auto) 0.6 10 ^3/uL (0-1.3); Monocytes % (auto) 7.9 % (0.0-12.0); Neutrophils # (auto) 4.7 10 ^3/uL (1.6-8.6); Neutrophils % (auto) 58.6 % (37.0-80.0); Nucleated Red Blood Cells % 0.1 %; Platelet Count (auto) 232 10^3/uL (140-450); Red Blood Cells 4.55 10^6/uL (4.5-5.90); Red Cell Distribution Width 12.6 % (11.8-14.3); White Blood Cell 7.9 10^3/uL (4.4-10.8)
[2024-01-03 01:30] LABS: Alanine Aminotransferase 29 U/L (7-40); Alkaline Phosphatase 60 U/L (46-116); Anion Gap 5 (5-15); Aspartate Aminotransferase 21 U/L (13-40); BUN/Creatinine Ratio 14.7 (10.0-20.0); Blood Urea Nitrogen 14 mg/dL (9-23); Calcium 9.1 mg/dL (8.7-10.4); Carbon Dioxide 28 mmol/L (20-31); Chloride 106 mmol/L (98-107); Glucose 94 mg/dL (74-106); Potassium 3.6 mmol/L (3.5-5.1); Sodium 139 mmol/L (136-145)
[2024-01-03 01:31] LABS: Albumin 4.5 g/dL (3.2-4.8); Bilirubin, Total 0.6 mg/dL (0.2-1.0); Total Protein 7.1 g/dL (5.7-8.2)
[2024-01-03 01:38] LABS: INR 1.07 (0.9-1.15); Prothrombin Time 11.3 sec (9.3-11.8)
[2024-01-03 01:43] LABS: CRP High Sensitivity 0.12 mg/dL (<1.0)
[2024-01-03 01:52] LABS: Partial Thromboplastin Time 79.6 SEC (24.5-34.5)
[2024-01-03 01:54] LABS: Erythrocyte Sedimentation Rate 8 mm/hr (0-20)
--- NOTE | 2024-01-03 02:16 | DVH ---
CHEST RADIOGRAPH Indication:chest pain Technique: Single frontal view of the chest was obtained Comparison: CEVRE on DOS: 08/29/21 FINDINGS: Lines and Tubes: None Lungs: No focal consolidation. Pleura: No effusion. No pneumothorax. Cardiomediastinal contours: Unremarkable Bones: No acute osseous abnormality. IMPRESSION: No acute cardiopulmonary disease.
== END | disposition home or self-care (01) ==
LOC: EEVIPCON 23:40 → ER 23:40 → SUR 23:41 → ER 01-03 00:38
PROVIDERS: ATTEND Student in an Organized Health Care Education/Training Program
DX: R07.89 Other chest pain (principal); R94.31 Abnormal electrocardiogram [ECG] [EKG]; Z79.899 Other long term (current) drug therapy
CPT/HCPCS: 36415; 71045; 80053; 83880; 84443; 84484; 85025; 85379; 85610; 85652; 85730; 86141; 93458; 99285; C1769; C1894; J1644; J2250; J3010; Q9967; 99152

== ENCOUNTER → 2024-01-05 | Outpatient (CLI) | payer BC ==
[~2024-01-05] MED LIST changes: -ANGIOMAX 250 MG VIAL IV ONE; -HEPARIN SODIUM (PORCINE) 5000 UNITS/ML 1ML VIAL ONE; -IODIXANOL 320MG/ML 100ML BTL IV ONE; -LIDOCAINE 2%HCL (LOCAL ANESTH.) INJ 20ML MDV ONE; -MIDAZOLAM HCL 2MG/2ML 2ml VIAL (1mg/ml) ONE; -SODIUM CHL 0.9% 0 ML ONE; -VERAPAMIL 2.5MG/ML INJ 2ML VIAL IV ONE; -fentaNYL CITRATE 100 MCG/2 ML VL ONE
--- NOTE | 2024-01-05 16:06 | DVHSR ---
APPROVED REPORT EXAM: Two-dimensional and M-mode echocardiogram with Doppler and color Doppler. INDICATION Chest Pain RISK FACTORS Height: 72, Weight: 185 DIMENSIONS LVDd4.3 (3.8-5.7cm)LA (2D)3.2 (1.9-4.0cm)Aortic Root3.4 (2.0-3.7cm) LVDs2.8 (2.5-4.0cm)LA (MM) (1.9-4.0cm)Aortic Cusp Exc1.9 (1.5-2.0cm) EF (%) 66.0 (55-70%)Rt. Atrium2.9 (1.9-4.0cm)Asc. Aorta2.9 cm IVSd0.9 (0.7-1.1cm)RV (D) (1.8-2.4cm) PWd1.1 (0.7-1.1cm) Mitral Valve MitralMitral Stenosis E wave0.90m/sMV Mean GR.mmHg A wave0.57m/sMV Peak GR.mmHg E/A ratio1.62D MVAcm2 DECEL [id number] 1/2 Timems Aortic Valve Aortic ValveAortic Stenosis V11.06m/Herlinda Mean GR.3mmHg V21.06m/Herlinda Peak GR.4mmHg LVOT Diameter2.2 (1.8-2.4cm)Doppler AVA3.80cm2 Pulmonic Valve V20.86m/s Tricuspid Valve TR Velocity1.10m/s [id number] Conclusion Hyperdynamic left ventricular estimated ejection fraction is 65%. Normal diastolic function. Normal right ventricular size and dimension. Normal right ventricular systolic function. Normal biatrial size and dimension. Normal aortic valve structure and function. Normal mitral valve structure and function. Normal tricuspid valve structure and function. The pulmonary valve is grossly normal. No pericardial effusion.
== END | disposition home or self-care (01) ==
LOC: XYW 15:23
PROVIDERS: ATTEND Student in an Organized Health Care Education/Training Program
DX: R07.9 Chest pain, unspecified (principal)
CPT/HCPCS: 93306

== ENCOUNTER → 2024-01-05 | Outpatient (CLI) | payer BC ==
[2024-01-05 14:00] LABS: Chloride 102 mmol/L (98-107); Potassium 3.9 mmol/L (3.5-5.1); Sodium 137 mmol/L (136-145)
[2024-01-05 14:01] LABS: Anion Gap 3 (5-15); Carbon Dioxide 32 mmol/L (20-31)
[2024-01-05 14:02] LABS: Calcium 10.4 mg/dL (8.7-10.4)
[2024-01-05 14:06] LABS: Glucose 92 mg/dL (74-106)
[2024-01-05 14:07] LABS: BUN/Creatinine Ratio 14.6 (10.0-20.0); Blood Urea Nitrogen 14 mg/dL (9-23); CRP High Sensitivity 0.14 mg/dL (<1.0)
[2024-01-05 14:08] LABS: Prostate Specific Antigen 1.38 ng/mL (0.0-4.0)
[2024-01-05 14:12] LABS: Carcinoembryonic Antigen 2.34 ng/mL (<=5.0)
[2024-01-06 08:06] LABS: AFP Serum Tumor Marker <1.8 ng/mL (0.0-6.9); Carbohydrate Antigen 19-9 18 U/mL (0-35)
== END | disposition home or self-care (01) ==
LOC: LAB 12:53
PROVIDERS: ATTEND Internal Medicine
DX: E03.9 Hypothyroidism, unspecified (principal)
CPT/HCPCS: 36415; 80048; 82105; 82306; 82378; 83615; 84153; 85379; 86141; 86301

== ENCOUNTER → 2024-05-25 | Outpatient (CLI) | payer BC ==
[2024-05-25 11:43] LABS: Basophils # (auto) 0 10 ^3/uL (0-0.2); Basophils % (auto) 0.3 % (0.0-2.0); Eosinophils # (auto) 0 10 ^3/uL (0-0.8); Eosinophils % (auto) 0.9 % (0.0-7.0); Hematocrit 45.8 % (41.0-53.0); Hemoglobin 15.8 g/dL (13.5-17.5); Lymphocytes % (auto) 18.4 % (10.0-50.0); Mean Corpuscular Hemoglobin 30.9 pg (28.0-32.0); Mean Corpuscular Hgb Conc. 34.5 g/dL (32.0-36.0); Mean Corpuscular Volume 89.6 fL (80.0-100.0); Monocytes # (auto) 0.4 10 ^3/uL (0-1.3); Monocytes % (auto) 7.3 % (0.0-12.0); Neutrophils # (auto) 4.1 10 ^3/uL (1.6-8.6); Neutrophils % (auto) 73.1 % (37.0-80.0); Nucleated Red Blood Cells % 0.2 %; Platelet Count (auto) 252 10^3/uL (140-450); Red Blood Cells 5.11 10^6/uL (4.5-5.90); White Blood Cell 5.6 10^3/uL (4.4-10.8)
[2024-05-25 11:58] LABS: INR 1.03 (0.9-1.15); Partial Thromboplastin Time 29.8 SEC (24.5-34.5); Prothrombin Time 10.9 sec (9.3-11.8)
[2024-05-25 12:16] LABS: Alanine Aminotransferase 36 U/L (7-40); Alkaline Phosphatase 84 U/L (46-116); Anion Gap 8 (5-15); Aspartate Aminotransferase 19 U/L (13-40); BUN/Creatinine Ratio 11.3 (10.0-20.0); Blood Urea Nitrogen 12 mg/dL (9-23); Carbon Dioxide 29 mmol/L (20-31); Chloride 102 mmol/L (98-107); Glucose 103 mg/dL (74-106); Potassium 3.9 mmol/L (3.5-5.1); Prostate Specific Antigen 0.96 ng/mL (0.0-4.0); Sodium 139 mmol/L (136-145); Triglycerides 138 mg/dL (< 150)
[2024-05-25 12:19] LABS: Thyroid Stimulating Hormone 0.79 uIU/mL (0.55-4.78)
[2024-05-25 12:20] LABS: Free T4 (Free Thyroxine) 1.36 ng/dL (0.89-1.76)
[2024-05-25 12:41] LABS: Albumin 5.4 g/dL (3.2-4.8); Calcium 10.4 mg/dL (8.7-10.4); Total Protein 8.6 g/dL (5.7-8.2)
[2024-05-25 12:42] LABS: Cholesterol 241 mg/dL (< 200); HDL Cholesterol 60 mg/dL (40-59); LDL Cholesterol 151 mg/dL (< 100)
[2024-05-26 08:08] LABS: AFP Serum Tumor Marker <1.8 ng/mL (0.0-6.9); Carbohydrate Antigen 19-9 46 U/mL (0-35)
== END | disposition home or self-care (01) ==
LOC: LAB 11:28
PROVIDERS: ATTEND Internal Medicine
DX: Z00.00 Encounter for general adult medical examination without abnormal findings (principal)
CPT/HCPCS: 36415; 80053; 80061; 82105; 82306; 83036; 83615; 84153; 84439; 84443; 85025; 85610; 85730; 86301

== ENCOUNTER 2024-07-22 12:54 | Outpatient (CLI) | payer BC ==
[2024-07-22 16:14] LABS: Urine Bacteria None Seen /hpf (None Seen)
[2024-07-22 16:24] LABS: Urine Blood Negative /uL (Negative); Urine Clarity Clear (Clear); Urine Color Light-Yellow (Yellow); Urine Protein, UAD Negative (Negative); Urine Specific Gravity 1.011 (1.001-1.035); Urine Squamous Epithelial Cell None Seen /hpf (<5); Urine Urobilinogen Normal (Negative); Urine pH 6.5 (5.0-9.0)
[2024-07-22 16:25] LABS: Urine WBC < 1 /HPF (0-3)
[2024-07-22 16:31] LABS: Alanine Aminotransferase 35 U/L (7-40); Alkaline Phosphatase 80 U/L (46-116); Anion Gap 5 (5-15); Aspartate Aminotransferase 21 U/L (13-40); BUN/Creatinine Ratio 11.7 (10.0-20.0); Bilirubin, Total 0.6 mg/dL (0.2-1.0); Blood Urea Nitrogen 11 mg/dL (9-23); Carbon Dioxide 30 mmol/L (20-31); Chloride 105 mmol/L (98-107); Glucose 93 mg/dL (74-106); Potassium 4.3 mmol/L (3.5-5.1); Sodium 140 mmol/L (136-145); Total Protein 7.6 g/dL (5.7-8.2)
[2024-07-22 16:34] LABS: Albumin 4.8 g/dL (3.2-4.8)
[2024-07-23 11:04] LABS: Hepatitis B Core Total AB Negative (Negative)
[2024-07-23 12:25] LABS: Hepatitis A Total Antibody Positive (Negative); Hepatitis B Surface Antigen Negative (Negative)
[2024-07-23 12:26] LABS: Hepatitis B Surface Antibody Negative (Negative); Hepatitis C Antibody Negative (Negative)
== END 2024-07-22 17:00 | disposition home or self-care (01) ==
LOC: LAB 12:54
PROVIDERS: ATTEND Internal Medicine
DX: Z00.00 Encounter for general adult medical examination without abnormal findings (principal); Z79.899 Other long term (current) drug therapy
CPT/HCPCS: 36415; 80053; 81001; 86704; 86706; 86708; 86803; 87086; 87340

== ENCOUNTER 2024-12-13 09:04 | Outpatient (CLI) | payer BC ==
[2024-12-13 09:37] LABS: Hematocrit 47.3 % (41.0-53.0); Hemoglobin 15.6 g/dL (13.5-17.5); Mean Corpuscular Hemoglobin 29.8 pg (28.0-32.0); Mean Corpuscular Volume 90.2 fL (80.0-100.0); Nucleated Red Blood Cells % 0.1 %
[2024-12-13 10:28] LABS: Albumin 4.6 g/dL (3.2-4.8); Alkaline Phosphatase 68 U/L (46-116); Anion Gap 8 (5-15); BUN/Creatinine Ratio 25.6 (10.0-20.0); Blood Urea Nitrogen 22 mg/dL (9-23); Calcium 9.3 mg/dL (8.7-10.4); Carbon Dioxide 30 mmol/L (20-31); Chloride 101 mmol/L (98-107); Cholesterol 182 mg/dL (< 200); Glucose 92 mg/dL (74-106); HDL Cholesterol 58 mg/dL (40-59); Potassium 4.6 mmol/L (3.5-5.1); Sodium 139 mmol/L (136-145); Total Protein 7.5 g/dL (5.7-8.2); Triglycerides 140 mg/dL (< 150)
[2024-12-13 10:29] LABS: Alanine Aminotransferase 68 U/L (7-40); Bilirubin, Total 0.6 mg/dL (0.2-1.0)
[2024-12-13 10:57] LABS: Prostate Specific Antigen 1.24 ng/mL (0.0-4.0)
[2024-12-13 11:01] LABS: Carcinoembryonic Antigen 1.37 ng/mL (<=5.0)
[2024-12-13 11:02] LABS: Free T4 (Free Thyroxine) 1.35 ng/dL (0.89-1.76)
== END 2024-12-13 17:00 | disposition home or self-care (01) ==
LOC: LAB 09:04
PROVIDERS: ATTEND Internal Medicine
DX: Z00.00 Encounter for general adult medical examination without abnormal findings (principal); Z79.899 Other long term (current) drug therapy
CPT/HCPCS: 36415; 80053; 80061; 82306; 82378; 82607; 83036; 84153; 84403; 84439; 84443; 85025; 86301

== ENCOUNTER → 2025-01-04 | Outpatient (CLI) | payer BC ==
[2025-01-04 16:06] LABS: Hematocrit 46.7 % (41.0-53.0); Hemoglobin 15.7 g/dL (13.5-17.5); Mean Corpuscular Hemoglobin 30.6 pg (28.0-32.0); Mean Corpuscular Volume 90.8 fL (80.0-100.0); Nucleated Red Blood Cells % 0.2 %
[2025-01-04 16:11] LABS: Urine Amorphous Crystal FEW /hpf (None Seen); Urine Budding Yeast MODERATE /hpf (None Seen); Urine Protein, UAD Negative (Negative)
[2025-01-04 16:49] LABS: Alkaline Phosphatase 75 U/L (46-116); Anion Gap 11 (5-15); BUN/Creatinine Ratio 10.3 (10.0-20.0); Bilirubin, Total 0.7 mg/dL (0.2-1.0); Blood Urea Nitrogen 9 mg/dL (9-23); Calcium 10.0 mg/dL (8.7-10.4); Carbon Dioxide 29 mmol/L (20-31); Chloride 103 mmol/L (98-107); Potassium 4.2 mmol/L (3.5-5.1); Sodium 143 mmol/L (136-145)
[2025-01-04 16:56] LABS: Alanine Aminotransferase 59 U/L (7-40); Albumin 5.1 g/dL (3.2-4.8); Glucose 66 mg/dL (74-106); Total Protein 8.5 g/dL (5.7-8.2)
== END | disposition home or self-care (01) ==
LOC: LAB 15:39
PROVIDERS: ATTEND Pathology Anatomic Pathology & Clinical Pathology
DX: K90.0 Celiac disease (principal)
CPT/HCPCS: 36415; 80053; 81001; 82105; 83013; 84403; 85025; 85652; 86003; 86141